=== PATIENT | male | born 1990 ===

== ENCOUNTER → 2021-06-14 | Outpatient (REF) | payer OTHER ==
[2021-06-14 09:35] LABS: SEMEN APPEARANCE OPAQUE (OPAQUE); SEMEN VOLUME 3.8 ml (2.0-5.0)
[2021-06-14 09:36] LABS: SEMEN VISCOSITY LIQUID (LIQUID); SPERM CONCENTRATION 53.9 M/ml (>=15.0); WBC CONCENTRATION <=1 M/ml (<=1 M/ml)
== END ==
LOC: M LAB REF 09:32
PROVIDERS: ATTEND Physician Assistant Medical
DX: N46.9 Male infertility, unspecified (principal)